=== PATIENT | female | born 1985 | race Caucasian/White ===

== ENCOUNTER 2017-01-04 02:08 | Emergency (ER) | payer SELFPAY | END 2017-01-04 02:20 | disposition left against medical advice (07) | LOC: ED 02:08 | DX: O26.892 Other specified pregnancy related conditions, second trimester (principal); R10.9 Unspecified abdominal pain; Z91.013 Allergy to seafood; Z3A.18 18 weeks gestation of pregnancy; Z53.21 Procedure and treatment not carried out due to patient leaving prior to being seen by health care provider ==